=== PATIENT | female | born 1970 | race Two or more races ===

== ENCOUNTER 2023-12-05 19:28 | Emergency (ER) | payer OTHER ==
[~2023-12-05] VITALS: Ht 162.6 cm; Wt 100.7 kg
[2023-12-05] MEDS ORDERED: TETANUS & DIPHTHERIA TOX,ADULT 0.5 ML VIAL IM ONE (20:45)
[2023-12-05] MEDS ORDERED: CEFTRIAXONE SODIUM 1,000 MG VIAL IM ONE (20:45)
[2023-12-05] MEDS ORDERED: DUI500 PO (21:28)
== END 2023-12-05 21:48 | disposition home or self-care (01) ==
LOC: ER 19:28
DX: S81.822A Laceration with foreign body, left lower leg, initial encounter (principal); W18.39XA Other fall on same level, initial encounter; Y93.89 Activity, other specified; Y92.89 Other specified places as the place of occurrence of the external cause
CPT/HCPCS: 73590; 90471; 90714; 96372; 99283; J0696